=== PATIENT | male | born 1965 | race Caucasian/White ===

== ENCOUNTER 2024-03-05 13:47 | Observation (INO) | payer OTHER, SELFPAY ==
[2024-03-05] MEDS: levETIRAcetam 1,000 MG in NA CHLORIDE 0.9% 100 ML IV ONE (14:15)
--- NOTE | 2024-03-05 14:22 | RAD REPORT ---
EXAM DESCRIPTION: CT - Head Brain Wo Cont - 03/05/2024 2:13 pm CLINICAL HISTORY: SEIZURE COMPARISON: No comparisons TECHNIQUE: All CT scans are performed using dose optimization technique as appropriate and may inclu de automated exposure control or mA/KV adjustment according to patient size. FINDINGS: No intracranial hemorrhage, hydrocephalus or extra-axial fluid collection.No areas of brai n edema or evidence of midline shift. Right frontal and parietal lobe moderate encephalomalacia from remote insults. Cerebral atrophy. The paranasal sinuses and mastoids are clear. The calvarium is intact. IMPRESSION: No acute intracranial abnormality. Right frontal and parietal lobe encephalomalacia may be from remote infarct .
[2024-03-05 14:43] LABS: Absolute Basophils 0.1 K/uL (0-0.5); Absolute Monocytes 0.7 K/uL (0.1-1.3); Absolute Neutrophil 5.6 K/uL (1.8-8.0); Basophils % 1.1 % (0-1.3); Hematocrit 41.8 % (39.6-49.0); Lymphocytes % 13.2 % (15.3-44.8); MCHC 33.5 g/dL (32.0-36.0); MCV 95.6 fL (80-100); MPV 7.1 fL (7.6-11.3); Monocytes % 9.3 % (3.3-12.3); Neutrophils % 76.4 % (41.7-73.7); Platelets 183 thou/uL (152-406); RBC Red Blood Cell Count 4.37 M/uL (4.33-5.43); Red Cell Distribution Width 12.8 % (12.1-15.2)
[2024-03-05 15:15] LABS: Albumin 3.8 g/dL (3.4-5.0); Anion Gap 26.7 mEq/L (5.0-15.0); Bilirubin Total 0.5 mg/dL (0.2-1.0); Globulin 3.7 g/dL (2.3-3.5); Potassium 3.7 mEq/L (3.5-5.1); Protein, Total 7.5 g/dL (6.4-8.2)
[2024-03-05] MEDS ORDERED: NA CHLORIDE 0.9% 2,000 ML ONE (15:22)
--- NOTE | 2024-03-05 15:55 | ER ---
Nurse's Notes [facility] Name: Haider Cohen Age: 58 yrs Sex: Male : 1965 Arrival Date: 03/05/2024 Time: 13:47 Bed 2 Private MD: Diagnosis: Lactic acidosis, seizure Presentation: 03/05 13:48 Chief complaint: EMS states: patient had a seizure at work, unsure of length or type, ko1 patient has a hx of seizures, has been off of sz meds. Coronavirus screen: At this time, the client does not indicate any symptoms associated with coronavirus-19. Ebola Screen: No symptoms or risks identified at this time. Initial Sepsis Screen: Does the patient meet any 2 criteria? No. Patient's initial sepsis screen is negative. Does the patient have a suspected source of infection? No. Patient's initial sepsis screen is negative. Risk Assessment: Do you want to hurt yourself or someone else? Patient reports no desire to harm self or others. Onset of symptoms is unknown. Care prior to arrival: Medication(s) given: Normal saline infusion, 500 mL, IV initiated. 20 GA, in the left antecubital area, Glucose check: 158. 13:48 Method Of Arrival: EMS: [facility] ko1 13:48 Acuity: KONRAD 3 ko1 Triage Assessment: 13:53 General: Appears in no apparent distress. ill, Behavior is calm, cooperative, ko1 appropriate for age. Pain: Denies pain. EENT: No deficits noted. Neuro: Seizure activity reported prior to arrival. Cardiovascular: No deficits noted. Respiratory: No deficits noted. GI: No deficits noted. : No deficits noted. Derm: No deficits noted. Musculoskeletal: No deficits noted. Historical: - Allergies: 13:53 No Known Allergies; ko1 - Home Meds: 13:53 amlodipine oral [Active]; Keppra Oral [Active]; ko1 - PMHx: 13:53 Hypertensive disorder; Seizure; ko1 14:18 CVA; ld1 - PSHx: 13:53 None; ko1 - Immunization history:: Adult Immunizations unknown. - Infectious Disease History:: Denies. - Social history:: Smoking status: Patient denies any tobacco usage or history of. Screenin:58 [facility] ED Fall Risk Assessment (Adult) History of falling in the last 3 months, ko1 including since admission No falls in past 3 months (0 pts) Confusion or Disorientation No (0 pts) Intoxicated or Sedated No (0 pts) Impaired Gait No (0 pts) Mobility Assist Device Used No (0 pt) Altered Elimination No (0 pt) Score/Fall Risk Level 0 - 2 = Low Risk Oriented to surroundings, Maintained a safe environment, Educated pt \T\ family on fall prevention, incl call for assistance when getting out of bed, Assessed \T\ reinforced patient's understanding of fall precautions, Provided non-skid footwear, Hourly rounding (assess needs \T\ fall precautionary measures) done, Used ambulatory aids as needed (educated on \T\ assisted with), Used gait belt as appropriate. Abuse screen: Denies threats or abuse. Denies injuries from another. Nutritional screening: No deficits noted. Tuberculosis screening: No symptoms or risk factors identified. Assessment: 13:58 Reassessment: see triage note. ko1 Vital Signs: 13:48 BP 128 / 77; Pulse 99; Resp 18; Temp 98; Pulse Ox 100% on R/A; ko1 13:58 BP 128 / 90; Pulse 96; Resp 16; Pulse Ox 95% ; ko1 15:10 BP 154 / 84; Pulse 86; Resp 16; Pulse Ox 100% ; ko1 15:39 BP 169 / 99; Pulse 85; Resp 18; Pulse Ox 100% on R/A; ko1 15:45 BP 177 / 102; Pulse 87; Resp 18; Pulse Ox 99% ; ko1 16:00 BP 155 / 99; Pulse 79; Resp 18; Pulse Ox 99% ; ko1 17:11 BP 167 / 103; Pulse 79; Resp 20; Pulse Ox 99% ; ko1 ED Course: 13:48 Patient arrived in ED. ko1 13:48 Heaven Wilson, MITZI is Primary Nurse. ko1 13:50 Angelita Ramirez MD is Attending Physician. sp3 13:53 Triage completed. ko1 13:53 Arm band placed on right wrist. Patient placed in an exam room, on a stretcher, on ko1 head batcher, on pulse oximetry, Patient notified of wait time. 13:58 Patient has correct armband on for positive identification. Bed in low position. Call ko1 light in reach. Side rails up X2. Client placed on continuous cardiac and pulse oximetry monitoring. NIBP monitoring applied. concrete gun operator on. Door closed. Noise minimized. Lights dimmed. Warm blanket given. 13:58 Maintain EMS IV. Dressing intact. Good blood return noted. Site clean \T\ dry. Gauge \T\ ko 1 site: 20g left AC. 14:14 CT Head Brain wo Cont In Process Unspecified. EDMS 14:35 CMP Sent. ko1 14:35 CBC with Diff Sent. ko1 15:27 Lactate w/ 2H reflex if indic. Sent. ld1 15:53 Notified ED physician of a critical lab result(s). lac 9.5. as6 15:55 Nils Peres is Hospitalizing Provider. sp3 16:30 Assisted to bathroom. ko1 17:00 Assisted to bathroom. ko1 17:00 No provider procedures requiring assistance completed. Patient admitted, IV remains in ko1 place. 17:08 Alcohol Serum/Plasma Sent. ko1 17:11 Provided Education on: na. ko1 17:34 Urine Drug Screen Sent. ko1 17:34 Urinalysis w/ reflexes Sent. ko1 18:09 BMP: Draw after 2 L IVF Sent. ko1 18:09 Lactate w/ 2H reflex if indic. Sent. ko1 18:36 Diet tray given. PO fluids given. Assisted to bathroom. ko1 Administered Medications: 14:34 Drug: Keppra IV 1000 mg IV at calculated rate once Route: IV; Rate: calculated rate; ko1 Site: left antecubital; 14:49 Follow up: Response: No adverse reaction; IV Status: Completed infusion; IV Intake: ko1 100ml 15:27 Drug: NS 0.9% IV 2000 ml IV at 1 bolus Per protocol; 1000 mL bolus Route: IV; Rate: 1 ld1 bolus; Site: left antecubital; 18:00 Follow up: Response: No adverse reaction; IV Status: Completed infusion; IV Intake: ko1 2000ml 16:01 Drug: Labetalol IV 10 mg IV at calculated rate once Route: IV; Rate: calculated rate; ko1 Site: left antecubital; 16:15 Follow up: Response: No adverse reaction; IV Status: Completed infusion; IV Intake: 2ml ko1 Medication: 17:11 VIS not applicable for this client. ko1 Intake: 14:49 IV: 100ml; Total: 100ml. ko1 16:15 IV: 2ml; Total: 102ml. ko1 18:00 IV: 2000ml; Total: 2102ml. ko1 Output: 16:25 Urine: 600ml (Voided); Total: 600ml. ko1 Outcome: 15:55 Decision to Hospitalize by Provider. sp3 17:00 Admitted to ER Hold. Please see [facility] for further documentation. ko1 17:00 Condition: stable 17:00 Instructed on the need for admit, Demonstrated understanding of 18:57 Patient left the ED. bm8 Signatures: Dispatcher [employer] EDMS Sultana Elaine RN RN ld1 Angelita Ramirez MD MD sp3 Chuck Saldaña RN RN as6 Heaven Wilson RN RN ko1 Chaitanya Adame RN RN bm8
--- NOTE | 2024-03-05 15:56 | EDPHYS ---
Physician Documentation [facility] Name: Haider Cohen Age: 58 yrs Sex: Male : 1965 Arrival Date: 03/05/2024 Time: 13:47 Bed 2 Private MD: ED Physician Angelita Ramirez HPI: 03/05 14:08 This 58 yrs old Male presents to ER via EMS with complaints of seizure. sp3 14:08 58-year-old male with a history of hypertension and longstanding seizure history sp3 presents with single isolated seizure tonic-clonic in nature that occurred at work just prior to arrival. Patient arrives via EMS. Patient states that he has been out of his Keppra for several months and has not been taking it. He cannot recall his dose. No recent breakthrough seizures reported. Patient currently denies headache, chest pain, fever, URI symptoms, shortness of breath, abdominal pain, nausea, vomit, diarrhea, or any other signs or symptoms on ROS at this time. He denies trauma.. Historical: - Allergies: 13:53 No Known Allergies; ko1 - Home Meds: 13:53 amlodipine oral [Active]; Keppra Oral [Active]; ko1 - PMHx: 13:53 Hypertensive disorder; Seizure; ko1 14:18 CVA; ld1 - PSHx: 13:53 None; ko1 - Immunization history:: Adult Immunizations unknown. - Infectious Disease History:: Denies. - Social history:: Smoking status: Patient denies any tobacco usage or history of. ROS: 14:09 Constitutional: Negative for fever, chills, and weight loss, Eyes: Negative for injury, sp3 pain, redness, and discharge, ENT: Negative for injury, pain, and discharge, Neck: Negative for injury, pain, and swelling, Cardiovascular: Negative for chest pain, palpitations, and edema, Respiratory: Negative for shortness of breath, cough, wheezing, and pleuritic chest pain, Abdomen/GI: Negative for abdominal pain, nausea, vomiting, diarrhea, and constipation, Back: Negative for injury and pain, MS/Extremity: Negative for injury and deformity, Skin: Negative for injury, rash, and discoloration, Psych: Negative for depression, anxiety, suicide ideation, homicidal ideation, and hallucinations, Allergy/Immunology: Negative for hives, rash, and allergies, Endocrine: Negative for neck swelling, polydipsia, polyuria, polyphagia, and marked weight changes, Hematologic/Lymphatic: Negative for swollen nodes, abnormal bleeding, and unusual bruising, 14:09 All other systems are negative, Exam: 14:09 Constitutional: This is a well developed, well nourished patient who is awake, alert, sp3 and in no acute distress. Head/Face: Normocephalic, atraumatic. Eyes: Pupils equal round and reactive to light, extra-ocular motions intact. Lids and lashes normal. Conjunctiva and sclera are non-icteric and not injected. Cornea within normal limits. Periorbital areas with no swelling, redness, or edema. ENT: Nares patent. No nasal discharge, no septal abnormalities noted. External auditory canals are clear. Oropharynx with no redness, swelling, or masses, exudates, or evidence of obstruction, uvula midline. Mucous membranes moist. Neck: Trachea midline, no thyromegaly or masses palpated, and no cervical lymphadenopathy. Supple, full range of motion without nuchal rigidity, or vertebral point tenderness. No Meningismus. Chest/axilla: Normal chest wall appearance and motion. Nontender with no deformity. No lesions are appreciated. Cardiovascular: Regular rate and rhythm with a normal S1 and S2. No gallops, murmurs, or rubs. Normal PMI, no JVD. No pulse deficits. Respiratory: Lungs have equal breath sounds bilaterally, clear to auscultation and percussion. No rales, rhonchi or wheezes noted. No increased work of breathing, no retractions or nasal flaring. Abdomen/GI: Soft, non-tender, with normal bowel sounds. No distension or tympany. No guarding or rebound. No evidence of tenderness throughout. Back: No spinal tenderness. No costovertebral tenderness. Full range of motion. Skin: Warm, dry with normal turgor. Normal color with no rashes, no lesions, and no evidence of cellulitis. MS/ Extremity: Pulses equal, no cyanosis. Neurovascular intact. Full, normal range of motion. Neuro: Awake and alert, GCS 15, oriented to person, place, time, and situation. Cranial nerves II-XII grossly intact. Motor strength 5/5 in all extremities. Sensory grossly intact. Cerebellar exam normal. Normal gait. Psych: Awake, alert, with orientation to person, place and time. Behavior, mood, and affect are within normal limits. 14:09 Neuro: Normal neuroexam but patient is still postictal, Vital Signs: 13:48 BP 128 / 77; Pulse 99; Resp 18; Temp 98; Pulse Ox 100% on R/A; ko1 13:58 BP 128 / 90; Pulse 96; Resp 16; Pulse Ox 95% ; ko1 15:10 BP 154 / 84; Pulse 86; Resp 16; Pulse Ox 100% ; ko1 15:39 BP 169 / 99; Pulse 85; Resp 18; Pulse Ox 100% on R/A; ko1 15:45 BP 177 / 102; Pulse 87; Resp 18; Pulse Ox 99% ; ko1 16:00 BP 155 / 99; Pulse 79; Resp 18; Pulse Ox 99% ; ko1 17:11 BP 167 / 103; Pulse 79; Resp 20; Pulse Ox 99% ; ko1 MDM: 13:58 Patient medically screened. sp3 14:09 Data reviewed: vital signs, nurses notes, lab test result(s), radiologic studies. ED sp3 course: 58-year-old male with breakthrough seizure x 1 due to being out of his Keppra. We will load with Keppra 1 g IV, obtain basic labs and a CT scan of the head. If workup is negative, we will safely discharge him home on p.o. Keppra and follow-up with his primary care physician and/or neurologist.. 15:20 ED course: Anion gap of 26 and sodium of 129. This is likely lactic acidosis versus sp3 dehydration. We will obtain a lactate, administer 2 L of normal saline and recheck BMP. If resolution we will continue discharge if not we will admit.. 15:53 ED course: Lactate at 9.2. At this point we will admit patient for continued IV sp3 hydration and resolution of lactic acidosis.. 03/05 14:03 Order name: CBC with Diff; Complete Time: 14:58 sp3 03/05 14:03 Order name: CMP; Complete Time: 15:17 sp3 03/05 15:18 Order name: Lactate w/ 2H reflex if indic. sp3 03/05 15:18 Order name: BMP: Draw after 2 L IVF sp3 03/05 16:56 Order name: Alcohol Serum/Plasma EDMS 03/05 16:56 Order name: Urinalysis w/ reflexes EDMS 03/05 16:56 Order name: Urine Drug Screen EDMS 03/05 17:01 Order name: ABG Arterial Blood Gas EDMS 03/05 17:01 Order name: Basic Metabolic Panel EDMS 03/05 17:01 Order name: Basic Metabolic Panel EDMS 03/05 17:01 Order name: CBC with Automated Diff EDMS 03/05 17:01 Order name: CBC with Automated Diff EDMS 03/05 17:01 Order name: Magnesium EDMS 03/05 17:01 Order name: Magnesium EDMS 03/05 17:01 Order name: Phosphorus EDMS 03/05 17:01 Order name: Phosphorus EDMS 03/05 17:04 Order name: Lactate w/ 2H reflex if indic. EDMS 03/05 18:43 Order name: Lactate Sepsis 2 HR Follow-up EDMS 03/05 14:03 Order name: CT Head Brain wo Cont; Complete Time: 14:23 sp3 03/05 17:08 Order name: EKG Electrocardiogram EDMS 03/05 14:03 Order name: IV Saline Lock; Complete Time: 14:05 sp3 03/05 14:03 Order name: Labs collected and sent; Complete Time: 14:35 sp3 03/05 14:03 Order name: Seizure Precautions; Complete Time: 14:05 sp3 Administered Medications: 14:34 Drug: Keppra IV 1000 mg IV at calculated rate once Route: IV; Rate: calculated rate; ko1 Site: left antecubital; 14:49 Follow up: Response: No adverse reaction; IV Status: Completed infusion; IV Intake: ko1 100ml 15:27 Drug: NS 0.9% IV 2000 ml IV at 1 bolus Per protocol; 1000 mL bolus Route: IV; Rate: 1 ld1 bolus; Site: left antecubital; 18:00 Follow up: Response: No adverse reaction; IV Status: Completed infusion; IV Intake: ko1 2000ml 16:01 Drug: Labetalol IV 10 mg IV at calculated rate once Route: IV; Rate: calculated rate; ko1 Site: left antecubital; 16:15 Follow up: Response: No adverse reaction; IV Status: Completed infusion; IV Intake: 2ml ko1 Disposition Summary: 03/05/24 15:55 Hospitalization Ordered Notes: Hospitalization Status: Inpatient Admission sp3 Provider: Nils Peres sp3 Location: Telemetry/MedSurg (Inpatient) sp3 Condition: Stable sp3 Problem: an acute exacerbation sp3 Symptoms: have worsened sp3 Bed/Room Type: Standard sp3 Room Assignment: 423(03/05/24 17:17) bd Diagnosis - Lactic acidosis, seizure sp3 Forms: - Medication Reconciliation Form sp3 - SBAR form sp3 - Leadership Thank You Letter sp3 Signatures: Dispatcher [employer] EDMS Afia Linda bd Sultana Elaine RN RN ld1 Angelita Ramirez MD MD sp3 Heaven Wilson RN RN ko1 Corrections: (The following items were deleted from the chart) 14:03 14:03 CBC+H.LAB.BRZ ordered. EDMS EDMS 14:03 14:03 COMPREHENSIVE METABOLIC PANEL+C.LAB.BRZ ordered. EDMS EDMS 14:03 14:03 Head Brain Wo Cont+CT.RAD.BRZ ordered. EDMS EDMS 15:19 15:19 LACTATE+C.LAB.BRZ ordered. EDMS EDMS 15:19 15:19 BASIC METABOLIC PANEL+C.LAB.BRZ ordered. EDMS EDMS 17:05 17:01 Urinalysis w/ reflexes ordered. EDMS EDMS 17:15 15:55 sp3 bd 17:17 17:15 406 bd bd
[2024-03-05] MEDS ORDERED: LABETALOL 20 MG/4ML SYRINGE IV ONE (15:59)
--- NOTE | 2024-03-05 16:31 | P.HP ---
Certification for Inpatient Patient admitted to: Observation With expected LOS: <2 Midnights Practitioner: I am a practitioner with admitting privileges, knowledge of patient current condition, hospital course, and medical plan of care. Services: Services provided to patient in accordance with Admission requirements found in Title 42 Section 412.3 of the Code of Federal Regulations Patient History Date of Service: 03/05/24 Reason for admission: Breakthrough seizure History of Present Illness: Haider Cohen is a 58 year old male with Pmhx HTN, CVA, and seizure who presents to the ED via EMS with c/o Tonic-clonic siezure. He reports being out of Keppra for several months. At time of examination he reports taking Keppra this morning. His medication compliance is unknown. Presents with tremors and appears uncomfortable. Bilateral lung sounds clear to auscultation, conversing well, and mildly hypertensive. Urine drug screen and alcohol level pending. Metabolic acidosis with lactic acidosis, UA pending. Initial vitals BP 128 / 77; Pulse 99; Resp 18; Temp 98; Pulse Ox 100% on R/A Laboratory evaluation left shift neutrophils 76.4, sodium 129, lactic acid 9.5, CO2 13, anion gap 26.[address] reports "No acute intracranial abnormality. Right frontal and parietal lobe encephalomalacia may be from remote infarct." Haider will be admitted to hospitalist service for further evaluation and treatment of breakthrough through seizure, metabolic acidosis, and Dr. Araujo consulted. - Past Medical/Surgical History -: CVA -: Hypertension -: Seizures - Social History Smoking Status: Former smoker Alcohol use: Yes CD- Drugs: No Review of Systems Neurological: Seizures (tonic-clonic) Physical Examination - Physical Exam General: Alert, Oriented x3, Cooperative, Disheveled HEENT: Atraumatic, Normocephalic, PERRLA Neck: Supple, 2+ carotid pulse no bruit Respiratory: Clear to auscultation bilaterally, Normal air movement Cardiovascular: Normal pulses, Regular rate/rhythm, Normal S1 S2 Capillary refill: <2 Seconds Gastrointestinal: Normal bowel sounds, Soft and benign, No tenderness, Distended Musculoskeletal: No swelling Integumentary: No rashes Neurological: Normal speech, Normal tone - Studies Laboratory Data (last 24 hrs) 03/05/24 03/05/24 14:25 14:25 WBC 7.30 Hgb 14.0 Hct 41.8 Plt Count 183 Sodium 129 L Potassium 3.7 BUN 13 Creatinine 1.14 Glucose 104 Total Bilirubin 0.5 AST 52 H ALT 53 Alkaline Phosphatase 54 Assessment and Plan - Plan Assessment and plan Breakthrough seizure Metabolic acidosis Lactic acidosis Hyponatremia CT head reports "No acute intracranial abnormality. Right frontal and parietal lobe encephalomalacia may be from remote infarct." CO2 13, anion gap 26.7, lactic acid 9.5, sodium 129, ABG pH 7.44, pCO2 30, pO2 97 on room air Trend lactic acid Ativan as needed Keppra 1000 mg IV given in the ED Keppra 500 IV twice daily Alcohol and drug toxicity pending Gentle IV fluids Neurology consult History of hypertension History of CVA Restart home medications when available DVT PPx Lovenox Full code 24-hour observation Discharge Plan: Home Plan to discharge in: 24 Hours - Advance Directives Does patient have a Living Will: No Does patient have a Durable POA for Healthcare: No
[2024-03-05] MEDS: NA CHLORIDE 0.9% 1,000 ML IV SCH (17:00)
[2024-03-05] MEDS ORDERED: LORazepam 2 MG/ML VIAL IV PRN (17:13)
[2024-03-05 17:30] LABS: Arterial Blood Carboxyhemoglob 0.8 % (0-1.5); Blood Gas Oxyhemoglobin 94.5 % (94-97); Blood Gas THB 14.2 g/dl (12-18); Blood O2 Saturation 97.1 % (92-98.5)
[2024-03-05 18:01] LABS: Barbiturates NEGATIVE (NEGATIVE); Benzodiazepines NEGATIVE (NEGATIVE); Cocaine NEGATIVE (NEGATIVE); METHAMPHETAM NEGATIVE (NEGATIVE); Methadone NEGATIVE (NEGATIVE); Opiates NEGATIVE (NEGATIVE); Phencyclidine NEGATIVE (NEGATIVE); THC Cannibis NEGATIVE (NEGATIVE)
[2024-03-05 19:52] VITALS: BMI 28.7
[2024-03-05] MEDS: ENOXAPARIN 40 MG/0.4 ML SQ SCH (21:02)
[2024-03-05] MEDS: levETIRAcetam 500 MG in NA CHLORIDE 0.9% 100 ML IV SCH (21:02)
[2024-03-06 02:20] LABS: Absolute Monocytes 0.8 K/uL (0.1-1.3); Basophils % 0.7 % (0-1.3); Eosinophils % 0.1 % (0-4.4); Hematocrit 40.1 % (39.6-49.0); Hemoglobin 13.9 g/dL (13.6-17.9); Lymphocytes % 17.2 % (15.3-44.8); MCH 32.3 pg (27.0-35.0); MCHC 34.6 g/dL (32.0-36.0); MCV 93.3 fL (80-100); MPV 7.1 fL (7.6-11.3); Monocytes % 13.7 % (3.3-12.3); Neutrophils % 68.3 % (41.7-73.7); Nucleated Red Blood Cells % 0.2 % (0-0); Platelets 154 thou/uL (152-406); Red Cell Distribution Width 12.9 % (12.1-15.2)
[2024-03-06 02:37] LABS: Anion Gap 8.9 mEq/L (5.0-15.0); Magnesium 2.1 mg/dL (1.6-2.4); Phosphorus 2.1 mg/dL (2.5-4.9); Potassium 3.9 mEq/L (3.5-5.1)
[2024-03-06] MEDS: POTASS/SODIUM PHOSPHATE 1 PKT POWD.PACK PO SCH (05:44)
[2024-03-06 06:25] LABS: Specific Gravity 1.009 (1.005-1.030); Urine Bilirubin NEGATIVE (Negative); Urine Blood Negative (Negative); Urine Clarity Clear (Clear); Urine Color Colorless (Yellow); Urine Glucose NEGATIVE (Negative); Urine Ketones 1+ (Negative); Urine Microscopic Reflex YN NO UMIC; Urine Nitrite NEGATIVE (Negative); Urine Protein NEGATIVE (Negative); Urine Urobilinogen Normal (Normal)
[2024-03-06 09:21] VITALS: O2SAT 98
[2024-03-06 10:01] VITALS: BP 154/91; TEMP 98.7
--- NOTE | 2024-03-07 18:57 | P.DS ---
Admission Date: 03/05/24 Discharge Date: 03/06/24 Disposition: ROUTINE DISCHARGE Discharge Condition: GOOD Reason for Admission: Breakthrough seizure Brief History of Present Illness: Diagnosis Breakthrough seizure Metabolic acidosis Lactic acidosis Hyponatremia History of hypertension History of CVA HPI 03/05/24 Haider Cohen is a 58 year old male with Pmhx HTN, CVA, and seizure who presents to the ED via EMS with c/o Tonic-clonic siezure. He reports being out of Keppra for several months. At time of examination he reports taking Keppra this morning. His medication compliance is unknown. Presents with tremors and appears uncomfortable. Bilateral lung sounds clear to auscultation, conversing well, and mildly hypertensive. Urine drug screen and alcohol level pending. Metabolic acidosis with lactic acidosis, UA pending. Initial vitals BP 128 / 77; Pulse 99; Resp 18; Temp 98; Pulse Ox 100% on R/A Laboratory evaluation left shift neutrophils 76.4, sodium 129, lactic acid 9.5, CO2 13, anion gap 26.[address] reports "No acute intracranial abnormality. Right frontal and parietal lobe encephalomalacia may be from remote infarct." Haider will be admitted to hospitalist service for further evaluation and treatment of breakthrough through seizure, metabolic acidosis, and Dr. Araujo consulted. Hospital Course: Haider Cohen is a pleasant 58 year old male with a past medical history significant for HTN, CVA, and seizure who was admitted to the [facility] on 03/05/24 for breakthrough seizure. Haider Cohen presented to the ED via EMS d/t a breakthrough seizure which presented at work yesterday. He reports not having a seizure since February of last year. Toxicoloty negative, Lactic acid elevated but has leveled to normal, un known medication compliance. He is awake alert and oriented, ambulating independently, calm and cooperative, improved this morning. He is tolerating p.o. diet, no signs of seizure overnight, hemodynamically stable for discharge Keppra is being prescribed to be sure the dosing is appropriate now with this breakthrough seizure. Dr. Araujo was consulted and will follow up as outpatient within one week of discharge. No driving until Dr. Araujo has specified the parameters. On 03/06/24, Haider was seen on morning rounds and deemed medically stable for discharge. Haider was discharged with instructions to schedule follow-up appointments with PCP and Dr. Araujo. Kellidestiniangy was provided prescriptions for Keppra The patient was given the opportunity to ask questions and reported no further questions. Furthermore, all questions were answered to the best of my ability. A copy of this discharge summary will be sent to the above providers to facilitate continuity of care. Physical Exam General: AAOx3, NAD, calm and cooperative HEENT: Atraumatic, Normocephalic, PERRLA Neck: Supple, 2+ carotid pulse no bruit Respiratory: Clear to auscultation bilaterally, Normal air movement Cardiovascular: Regular rate/rhythm, Normal S1 S2, no murmur noted Capillary refill: <2 Seconds Gastrointestinal: Normal bowel sounds, Soft and benign, No tenderness, Distended Musculoskeletal: No swelling, 2+ peripheral pulses Integumentary: No rashes Neurological: Normal speech, Normal tone Vital Signs/Physical Exam: Temp Pulse Resp BP Pulse Ox 98.7 F 68 16 154/91 H 98 03/06/24 08:00 03/06/24 08:00 03/06/24 08:00 03/06/24 08:00 03/06/24 08:00 Laboratory Data at Discharge: WBC 5.80 thou/uL (4.3-10.9) 03/06/24 02:12 Hgb 13.9 g/dL (13.6-17.9) 03/06/24 02:12 Hct 40.1 % (39.6-49.0) 03/06/24 02:12 Plt Count 154 thou/uL (152-406) 03/06/24 02:12 Sodium 133 mEq/L (136-145) L 03/06/24 02:12 Potassium 3.9 mEq/L (3.5-5.1) 03/06/24 02:12 BUN 10 mg/dL (7-18) 03/06/24 02:12 Creatinine 0.87 mg/dL (0.70-1.30) 03/06/24 02:12 Glucose 118 mg/dL (74-106) H 03/06/24 02:12 Phosphorus 2.1 mg/dL (2.5-4.9) L 03/06/24 02:12 Magnesium 2.1 mg/dL (1.6-2.4) 03/06/24 02:12 Total Bilirubin 0.5 mg/dL (0.2-1.0) 03/05/24 14:25 AST 52 U/L (15-37) H 03/05/24 14:25 ALT 53 U/L (16-61) 03/05/24 14:25 Alkaline Phosphatase 54 U/L (45-117) 03/05/24 14:25 Home Medications: Amlodipine [Norvasc*] 1 tab PO DAILY 03/05/24 levETIRAcetam [Keppra] 500 mg PO BID 30 Days #60 tab 03/06/24 New Medications: levETIRAcetam [Keppra] 500 mg PO BID 30 Days #60 tab Physician Discharge Instructions: Haider Cohen presented to the ED via EMS d/t a breakthrough seizure which presented at work yesterday. He reports not having a seizure since February of last year. Keppra is being prescribed to be sure the dosing is appropriate now with this breakthrough seizure. Dr. Araujo was consulted and will follow up as outpatient within one week of discharge. No driving until Dr. Araujo has specified the parameters. 1. Follow up with PCP for continued medication management 2. Follow up with Dr. Araujo for seizure management within one week 3. Continue regular diet 4. Refrain from driving, Dr. Araujo will set further regulations for driving. 5. Please refrain from drug, alcohol, stressful situations to prevent further breakthrough seizures occurring. 6. Return to the ER if symptoms worsen. New medication Keppra 500 mg PO BID x 30 days, refills per Dr. Araujo going forward Diet: Regular Activity: Fall precautions Followup: Stef Araujo MD [ASSOCIATE-ACTIVE - CAN ADMIT] - 1 Week NONE,NONE [Primary Care Provider] -
== END 2024-03-06 10:53 | disposition home or self-care (01) ==
LOC: ER 13:47 → ERHOLD 16:52 → 4TH 18:12
PROVIDERS: ADMIT Internal Medicine; ATTEND Internal Medicine
DX: R56.9 Unspecified convulsions (principal); E87.20 Acidosis, unspecified; E87.1 Hypo-osmolality and hyponatremia; I10 Essential (primary) hypertension; Z86.73 Personal history of transient ischemic attack (TIA), and cerebral infarction without residual deficits
CPT/HCPCS: 96361; 93005; 85025 ×2; 80048 ×2; 36415; 83735; 84100; 83605 ×4; 81003; 80053; 80307; 70450; 82805; 96375; 96374; 99285; 82077; 36600; J1953 ×3; J1650 ×2; J7030 ×3; G0378